=== PATIENT | male | born 1960 | race Caucasian/White ===

== ENCOUNTER 2021-03-31 10:10 | Emergency (ER) | payer BC ==
[~2021-03-31] VITALS: Ht 170.2 cm; Wt 86.0 kg
[2021-03-31] MEDS ORDERED: dexamethasone sod phosphate 10mg/ml inj IV STA (11:02)
[2021-03-31] MEDS ORDERED: normal saline 1000ml 1,000 ML IV ONE (11:05)
[2021-03-31] MEDS ORDERED: metoclopramide 5 mg/ml inj IV ONE (11:05)
[2021-03-31] MEDS ORDERED: iohexol 300mg/ml 100ml inj. ONE (11:09)
--- NOTE | 2021-03-31 11:19 | NUR ---
to ct scan.
[2021-03-31 11:23] LABS: BASOPHILS % (AUTO) 0.2 % (0-1); EOSINOPHILS # (AUTO) 0.1 X10'3 (0-0.9); EOSINOPHILS % (AUTO) 1.3 % (0-6); HEMATOCRIT 38.5 % (42.0-52.0); HEMOGLOBIN 13.3 g/dl (14.0-17.9); LYMPHOCYTES # (AUTO) 0.9 X10'3 (1.1-4.8); LYMPHOCYTES % (AUTO) 7.9 % (21-51); MEAN CORPUSCULAR HEMOGLOBIN 33.5 PG (27.0-31.0); MEAN CORPUSCULAR HGB CONC 34.6 g/dL (33.0-36.5); MEAN PLATELET VOLUME 9.2 FL (7.4-10.4); MONOCYTES # (AUTO) 1.5 X10'3 (0-0.9); MONOCYTES % (AUTO) 13.7 % (2-12); NEUTROPHILS # (AUTO) 8.4 X10'3 (1.8-7.7); NEUTROPHILS % (AUTO) 76.9 % (42-75); PLATELET COUNT 125 X10'3 (140-440); RED BLOOD COUNT 3.97 X10'6 (4.70-6.10); RED CELL DISTRIBUTION WIDTH 13.3 % (11.5-14.5)
[2021-03-31 11:37] VITALS: BP 167/114
[2021-03-31] MEDS ORDERED: LORazepam 2 mg/ml vial IV ONE (11:45)
[2021-03-31 11:48] LABS: ALANINE AMINOTRANSFERASE 20 U/L (12-78); ALBUMIN 3.6 G/DL (3.4-5.0); ALKALINE PHOSPHATASE 67 IU/L (46-116); ANION GAP 8 (8-16); ASPARTATE AMINO TRANSFERASE 27 U/L (10-37); BILIRUBIN,TOTAL 0.7 MG/DL (0.1-1.0); BLOOD UREA NITROGEN 17 MG/DL (7-18); CALCIUM 8.9 MG/DL (8.5-10.1); CHLORIDE 97 MMOL/L (99-107); CREATININE 1.06 MG/DL (0.60-1.10); GLUCOSE 103 MG/DL (70-104); POTASSIUM 4.8 MMOL/L (3.5-5.1); SODIUM 130 MMOL/L (135-145); TOTAL CARBON DIOXIDE 24.8 MMOL/L (24-32); TOTAL PROTEIN 7.1 G/DL (6.4-8.2); eGFR 71 ML/MIN
--- NOTE | 2021-03-31 11:49 | NUR ---
spoke to dr lee that pt recived dexamethasone and started getting sob and unable to braethe spo2 96% on ra .pt looks anxious as per md he will order ativian for the pt.
[2021-03-31] MEDS ORDERED: PRED20TA PO (13:43)
== END 2021-03-31 13:38 | disposition home or self-care (01) ==
LOC: ER 10:12
DX: R59.1 Generalized enlarged lymph nodes (principal); R09.89 Other specified symptoms and signs involving the circulatory and respiratory systems; R06.02 Shortness of breath; R13.10 Dysphagia, unspecified; Z79.899 Other long term (current) drug therapy
CPT/HCPCS: 36415; 70491; 80053; 83605; 84145; 85025; 93005; 96361; 96374; 96375; 99285; J1100; J2060; J2765; J7030; Q9967